=== PATIENT | male | born 1960 | race Caucasian/White ===

== ENCOUNTER 2024-10-16 16:52 | Emergency (ER) | payer SELFPAY ==
[2024-10-16 16:54] VITALS: BP 136/92; PULSE 74; RESP 14; TEMP 37.2; O2SAT 96; BMI 29.9
--- NOTE | 2024-10-16 17:28 | ED_ITS ---
HPI - Ear Problem <Leni Espinoza PA-C - Last Filed: 10/16/24 19:31> General Chief complaint: Ear Stated complaint: rt er pain, not hearing well Time Seen by Provider: 10/16/24 17:23 Source: patient Mode of arrival: Ambulatory History of Present Illness HPI Narrative: Mr. Villarreal is a pleasant 64-year-old male with a past medical history of decreased hearing, type 2 diabetes, hypertension, hyperlipidemia who presents to the emergency department for right ear pain x2 days. Patient states he was having some right ear fullness and assumed that he had ear wax buildup so he put all of oil in his ear. States it since he put the all oil in his ear yesterday he has had pain of the right ear. Describes it as fullness, decreased hearing. Reports needing to have his ears flushed in the past. Does admit to frequent Q- tip use. Denies cold or flu-like symptoms, fevers, chills. Related Data Previous Rx's Medication Instructions Recorded amoxicillin 875 mg-potassium 1 tab PO Q12H 5 days #10 tabs 10/16/24 clavulanate 125 mg tablet Allergies Allergy/AdvReac Type Severity Reaction Status Date / Time neomycin Allergy Unknown Verified 10/16/24 18:17 Review of Systems <Leni Espinoza PA-C - Last Filed: 10/16/24 19:31> Review of Systems ROS Unobtainable: All systems reviewed & are unremarkable except as noted in HPI and below Patient History <Leni Espinzoa PA-C - Last Filed: 10/16/24 19:31> Social History Smoking Status: Unknown if ever smoked Smoking Status: Unknown if ever smoked Exam <Leni Espinoza PA-C - Last Filed: 10/16/24 19:31> Narrative Exam Narrative: GENERAL: 64 year old patient appears stated age. Well-developed patient, in no acute distress. HEAD: Atraumatic. Normocephalic. EYES: Extraocular motions intact. No scleral icterus. No injection or drainage. ENT: Right ear cerumen impaction. Left ear canal clear, TM is slightly opacified with no erythema or bulging. NECK: Trachea midline. Cervical ROM intact. CARDIOVASCULAR: Regular rate RESPIRATORY: ?Nonlabored respirations. ?Speaking in clear, full sentences. NEURO: AOx3. ?Clear speech. ?Moves all 4 extremities appropriately. SKIN: No rash or erythema of visible areas Initial Vital Signs Initial Vital Signs: Vital Signs Temperature 98.9 F 10/16/24 16:54 Pulse Rate 74 10/16/24 16:54 Respiratory Rate 14 10/16/24 16:54 Blood Pressure 136/92 H 10/16/24 16:54 Pulse Oximetry 96 10/16/24 16:54 Oxygen Delivery Method Room Air 10/16/24 16:54 <Donell Mcrae MD - Last Filed: 10/17/24 01:51> Initial Vital Signs Initial Vital Signs: Vital Signs Temperature 98.9 F 10/16/24 16:54 Pulse Rate 74 10/16/24 16:54 Respiratory Rate 14 10/16/24 16:54 Blood Pressure 136/92 H 10/16/24 16:54 Pulse Oximetry 96 10/16/24 16:54 Oxygen Delivery Method Room Air 10/16/24 16:54 Procedures <Leni Espinoza PA-C - Last Filed: 10/16/24 19:31> Ear Wax Removal Right Ear: Time of procedure: 19:00 Cerumenolytic Used: other (warm water, hydrogen peroxide) Results: Re-examined: cerumen removed completely TM Examination: TM(s) erythematous Ear Canal Exam: atraumatic Patient Tolerated Procedure: Well Complications: no problems Technique: ear canal irrigated and ear canal curetted Course <Leni Espinoza PA-C - Last Filed: 10/16/24 19:31> Orders Ordered: Discontinued Medications Amoxicillin/Clavulanate Potassium (Amoxicillin/Clav 875/125 Mg) 1 tab PO NOW ONE Stop: 10/16/24 19:01 Last Admin: 10/16/24 19:08 Dose: 1 tab Documented By: LIVIER Hydrogen Peroxide/Benzyl Alcohol (Hydrogen Peroxide 473 Ml Solution) 30 ml TOP NOW ONE Stop: 10/16/24 18:12 Last Admin: 10/16/24 18:19 Dose: 30 ml Documented By: CECILIA Vital Signs Vital signs: Vital Signs - 8 hr 10/16/24 16:54 Temperature 98.9 F Pulse Rate 74 Respiratory Rate 14 Blood Pressure 136/92 H Pulse Oximetry 96 Oxygen Delivery Method Room Air <Donell Mcrae MD - Last Filed: 10/17/24 01:51> Orders Ordered: Discontinued Medications Amoxicillin/Clavulanate Potassium (Amoxicillin/Clav 875/125 Mg) 1 tab PO NOW ONE Stop: 10/16/24 19:01 Last Admin: 10/16/24 19:08 Dose: 1 tab Documented By: LIVIER Hydrogen Peroxide/Benzyl Alcohol (Hydrogen Peroxide 473 Ml Solution) 30 ml TOP NOW ONE Stop: 10/16/24 18:12 Last Admin: 10/16/24 18:19 Dose: 30 ml Documented By: CECILIA Vital Signs Vital signs: Vital Signs - 8 hr 10/16/24 16:54 Temperature 98.9 F Pulse Rate 74 Respiratory Rate 14 Blood Pressure 136/92 H Pulse Oximetry 96 Oxygen Delivery Method Room Air Medical Decision Making <Leni Espinoza PA-C - Last Filed: 10/16/24 19:31> MDM Narrative Medical decision making narrative: 64-year-old male with a past medical history of decreased hearing, type 2 diabetes, hypertension, hyperlipidemia who presents to the emergency department for right ear pain x2 days. Differential diagnosis includes but is not limited to cerumen impaction, acute otitis media, acute otitis externa, ruptured TM, etc. On exam the patient is in no acute distress, nontoxic appearing, vital signs appropriate. He has a cerumen impaction of the right ear canal, normal left ear canal with slight opacification of the TM. He is chronic hearing loss. After shared decision-making with the patient we will proceed with irrigation of the right ear. Large amount of cerumen, foreign material suspected to be toilet paper irrigated and removed using curette from the right ear canal. Patient had immediate improvement in pain and hearing. His tympanic membrane was erythematous no perforation. No mastoid tenderness. We will treat patient with Augmentin b.i.d. x5 days for acute otitis media of the right ear. Recommended avoiding putting anything into that ear and use Debrox only if needed for ear wax buildup. Advised patient to follow up with his primary care doctor for repeat ear exam within the next week. Patient verbalized understanding of all information is stable for discharge. First dose of antibiotics given in the ER and remainder sent to his pharmacy of choice. Discharge Plan Departure Patient Disposition: Home Clinical Impression: Otitis media Qualifiers: Otitis media type: unspecified Chronicity: acute Qualified Code(s): H66.90 - Otitis media, unspecified, unspecified ear Cerumen impaction Qualifiers: Laterality: right Qualified Code(s): H61.21 - Impacted cerumen, right ear Ear foreign body Qualifiers: Encounter type: initial encounter Laterality: right Qualified Code(s): T16.1XXA - Foreign body in right ear, initial encounter Instructions: DI for Cerumen Impaction Activity Restrictions/Additional Instructions: Dear Mr. Villarreal, Your diagnosis today is right ear infection and ear wax impaction. In the ER, we flushed her ears and removed all debris from the right ear canal. We are treating you with 5 days of oral antibiotics for ear infection. Complete the full course of antibiotics and use Tylenol/ibuprofen if needed for pain. Follow up with your primary care doctor for repeat examination. Return to the ER if you develop any new or worsening symptoms such as fevers, vomiting, redness or skin infection on the scalp, etc. Please purchase Debrox ear drops and use them to prevent wax buildup. Avoid putting Q-tips or anything else in your ears. Please follow up with your primary care doctor within the next 2-3 days for ER follow-up. (If you do not have a PCP you can call [phone]. ?to schedule an appointment with an [facility] Primary Care Provider) IF YOU DEVELOP ANY NEW OR WORSENING SYMPTOMS, RETURN TO THE ER! Please read the attached instructions, they highlight more specific treatments and interventions for you at home. Thank you for letting me participate in your care, Leni Espinoza PA-C Prescriptions: New amoxicillin-pot clavulanate 875-125 mg tablet 1 tab PO Q12H 5 Days Qty: 10 0RF Referrals: Miscellaneous,[facility] [Primary Care Provider] - Stand Alone Forms: Patient Portal/API/Survey ED Sign-out <Donell Mcrae MD - Last Filed: 10/17/24 01:51> Cosign ED Attending Cosignature Attestation: I was immediately available in the department for consultation. This documentation has been reviewed and I agree with assessment and plan. Supervised by Donell Mcrae MD
[2024-10-16] MEDS: HYDROGEN PEROXIDE 473 ML SOLUTION 30 ML TOP (18:19)
[2024-10-16] MEDS: AMOXICILLIN/CLAV 875/125 MG 1 TAB PO (19:08)
== END 2024-10-16 19:17 | disposition home or self-care (01) ==
PROVIDERS: Emergency Provider Physician Assistant
DX: H66.91 Otitis media, unspecified, right ear (principal); H61.21 Impacted cerumen, right ear; T16.1XXA Foreign body in right ear, initial encounter
CPT/HCPCS: 69210; 99283